=== PATIENT | female | born 1980 | race Two or more races ===

== ENCOUNTER → 2017-09-19 | Outpatient (CLI) | payer OTHER | LOC: BRMIMAGING 13:39 | PROVIDERS: ATTEND Internal Medicine Rheumatology | DX: M51.37 Other intervertebral disc degeneration, lumbosacral region (principal); M79.641 Pain in right hand; M79.642 Pain in left hand; M25.551 Pain in right hip | CPT/HCPCS: 72202-PO; 73120-PO; 73502-PO ==